=== PATIENT | male | born 2000 | race African-American/Black ===

== ENCOUNTER 2023-01-06 17:27 | Emergency (ER) | payer OTHER ==
[~2023-01-06] VITALS: Ht 190.5 cm; Wt 111.4 kg
[2023-01-06] MEDS ORDERED: dexAMETHasone 20MG/5ML VIAL IV ONE (20:15)
[2023-01-06] MEDS ORDERED: NS 1,000 ML IV ONE (20:15)
[2023-01-06] MEDS ORDERED: AMPICILLIN SOD/SULBACTAM SOD 3 GM in D5W MINI-BAG PLUS 100 ML IV ONE (20:15)
[2023-01-06] MEDS ORDERED: KETOROLAC 30 MG/ML 1ML VIAL IV ONE (20:15)
[2023-01-06 20:41] LABS: BASO % 0.2 % (0.0-1.0); EOS # 0.2 10^3/uL (0.0-0.5); EOS % 1.5 % (0.0-3.0); HEMATOCRIT 44.2 % (42.0-52.0); HEMOGLOBIN 15.4 g/dl (13.5-17.5); LYMPH # 3.6 10^3/uL (1.5-5.0); MEAN CORPUSCULAR HEMOGLOBIN 30.4 pg (27.0-33.0); MEAN CORPUSCULAR HGB CONC 34.8 g/dl (32.0-36.5); MEAN CORPUSCULAR VOLUME 87.4 fl (80.0-96.0); MONO # 1.4 10^3/uL (0.0-0.8); NEUTROPHILS % 62.9 % (36.0-66.0); PLATELET COUNT, AUTOMATED 251 10^3/uL (150-450); RED BLOOD COUNT 5.06 10^6/uL (4.30-6.10); WHITE BLOOD COUNT 14.2 10^3/uL (4.0-10.0)
[2023-01-06] MEDS ORDERED: ISOVUE-370 76% 100ML VIAL As Ordered ONE (20:44)
[2023-01-06] MEDS ORDERED: ONDANSETRON 4MG 2ML VIAL IV ONE (20:45)
[2023-01-06 20:52] LABS: ERYTHROCYTE SEDIMENTATION RATE 15 mm/hr (0-15)
[2023-01-06] MEDS ORDERED: CIPRODEX OTIC SUSP 7.5ML AD STA (21:43)
[2023-01-06] MEDS ORDERED: NORCO 5/325MG TABLET (HOME DOSE PACK) PO ONE (22:25)
[2023-01-06] MEDS ORDERED: AMOX875T2 PO (22:27)
[2023-01-06] MEDS ORDERED: CIPR7.5D5 OTIC (22:27)
[2023-01-06] MEDS ORDERED: MEDR4PAK PO (22:27)
[2023-01-06 22:50] VITALS: BP 132/80; TEMP 98.6; O2SAT 100
== END 2023-01-06 22:46 | disposition home or self-care (01) ==
LOC: M ED 17:27
DX: H60.91 Unspecified otitis externa, right ear (principal); J02.0 Streptococcal pharyngitis; F17.210 Nicotine dependence, cigarettes, uncomplicated
CPT/HCPCS: 70491; 80047; 85025; 85652; 86140; 87880; 96361; 96365; 96375; 99283; J0295; J1100; J1885; J2405; Q9967

== ENCOUNTER 2023-03-09 11:27 | Emergency (ER) | payer OTHER ==
[~2023-03-09] VITALS: Ht 188 cm; Wt 107.5 kg
[~2023-03-09 11:27] MED LIST: AMOX875T2 PO; CIPR7.5D5 OTIC; MEDR4PAK PO
[2023-03-09] MEDS ORDERED: ACET1TAB55 PO (12:00)
[2023-03-09] MEDS ORDERED: ACETAMINOPHEN 325 MG TAB PO ONE (14:45)
[2023-03-09] MEDS ORDERED: NS 1,000 ML IV ONE (16:25)
[2023-03-09] MEDS ORDERED: KETOROLAC 30 MG/ML 1ML VIAL IV ONE (16:25)
[2023-03-09 17:13] LABS: BASO % 0.2 % (0.0-1.0); EOS % 0.1 % (0.0-3.0); HEMATOCRIT 43.4 % (42.0-52.0); HEMOGLOBIN 15.2 g/dl (13.5-17.5); LYMPH # 2.3 10^3/uL (1.5-5.0); LYMPH % 14.8 % (24.0-44.0); MEAN CORPUSCULAR HEMOGLOBIN 30.6 pg (27.0-33.0); MEAN CORPUSCULAR VOLUME 87.5 fl (80.0-96.0); MONO % 15.1 % (2.0-8.0); NEUTROPHILS % 69.3 % (36.0-66.0); PLATELET COUNT, AUTOMATED 222 10^3/uL (150-450); RED BLOOD COUNT 4.96 10^6/uL (4.30-6.10); WHITE BLOOD COUNT 15.8 10^3/uL (4.0-10.0)
[2023-03-09 17:14] LABS: MONO # 2.4 10^3/uL (0.0-0.8)
[2023-03-09] MEDS ORDERED: ISOVUE-370 76% 100ML VIAL As Ordered ONE (17:14)
[2023-03-09] MEDS ORDERED: AMOX500C PO (19:14)
[2023-03-09] MEDS ORDERED: IBUP-1022 PO (19:14)
[2023-03-09] MEDS ORDERED: AMOXICILLIN 500 MG CAP PO ONE (19:15)
[2023-03-09 19:35] VITALS: BP 126/63; TEMP 97.6; O2SAT 99
== END 2023-03-09 19:37 | disposition home or self-care (01) ==
LOC: M ED 11:27
DX: J03.90 Acute tonsillitis, unspecified (principal)
CPT/HCPCS: 70491; 80047; 83605; 85025; 87040; 87486; 87581; 87633; 87798; 87880; 96374; 99284; J1885; Q9967

== ENCOUNTER 2023-03-12 10:42 | Emergency (ER) | payer OTHER ==
[~2023-03-12] VITALS: Ht 190.5 cm; Wt 106.3 kg
[~2023-03-12 10:42] MED LIST changes: +ACET1TAB55 PO; +AMOX500C PO; +IBUP-1022 PO
[2023-03-12] MEDS ORDERED: IBUPROFEN 600MG TAB PO ONE (13:50)
[2023-03-12] MEDS ORDERED: KETOROLAC 30 MG/ML 1ML VIAL IM ONE (14:25)
[2023-03-12] MEDS ORDERED: ACETAMINOPHEN 500 MG TAB PO ONE (14:25)
[2023-03-12] MEDS ORDERED: dexAMETHasone 20MG/5ML VIAL IM ONE (14:25)
[2023-03-12] MEDS ORDERED: KETOROLAC 30 MG/ML 1ML VIAL IV ONE (14:25)
[2023-03-12] MEDS ORDERED: dexAMETHasone 20MG/5ML VIAL IV ONE (14:25)
[2023-03-12] MEDS ORDERED: ISOVUE-370 76% 100ML VIAL As Ordered ONE (14:38)
[2023-03-12 15:29] VITALS: BP 128/74; TEMP 99.7; O2SAT 97
== END 2023-03-12 15:31 | disposition home or self-care (01) ==
LOC: M ED 10:42
DX: J02.0 Streptococcal pharyngitis (principal)
CPT/HCPCS: 70491; 96374; 96375; 99284; J1100; J1885; Q9967

== ENCOUNTER 2023-05-18 11:11 | Day surgery (SDC) | payer OTHER ==
[~2023-05-18] VITALS: Ht 190.5 cm; Wt 108.4 kg
[2023-05-18] MEDS ORDERED: SUGAMMADEX SODIUM 500 MG/5 ML VIAL (BRIDION) As Ordered ONE (12:54)
[2023-05-18] MEDS ORDERED: LIDOCAINE 2% 100MG/5ML SDV (FOR ANES.) As Ordered ONE (12:54)
[2023-05-18] MEDS ORDERED: MIDAZOLAM INJ 2MG/2ML VIAL As Ordered ONE (12:54)
[2023-05-18] MEDS ORDERED: ROCURONIUM BROMIDE 50MG/5ML VIAL As Ordered ONE (12:54)
[2023-05-18] MEDS ORDERED: fentaNYL 100 MCG/2 ML INJECTION As Ordered ONE ×2 (12:54→13:23)
[2023-05-18] MEDS ORDERED: propofoL 200 MG/20 ML VIAL As Ordered ONE (12:54)
[2023-05-18] MEDS ORDERED: ONDANSETRON 4MG 2ML VIAL As Ordered ONE (12:54)
[2023-05-18] MEDS ORDERED: ESMOLOL INJ 100MG/10ML VIAL As Ordered ONE (13:27)
[2023-05-18] MEDS ORDERED: LR 1,000 ML IV SCH (14:15)
[2023-05-18] MEDS ORDERED: fentaNYL 100 MCG/2 ML INJECTION IV PRN (14:15)
[2023-05-18] MEDS ORDERED: ONDANSETRON 4MG 2ML VIAL IV PRN (14:15)
[2023-05-18] MEDS ORDERED: HYDROMORPHONE HCL 0.5 MG/ 0.5 ML SYRINGE IV PRN (14:15)
[2023-05-18] MEDS: oxyCODONE 5MG TAB PO PRN ×2 (15:13→15:46)
[2023-05-18 16:12] VITALS: BP 131/80; TEMP 97; O2SAT 99
== END 2023-05-18 16:35 | disposition home or self-care (01) ==
LOC: M SDC 11:11
PROVIDERS: ATTEND Otolaryngology
DX: J35.03 Chronic tonsillitis and adenoiditis (principal); M25.569 Pain in unspecified knee
CPT/HCPCS: 42821; 88302; J0665; J1100; J1805; J2250; J2405; J3010

== ENCOUNTER 2023-05-27 18:44 | Emergency (ER) | payer OTHER ==
[~2023-05-27] VITALS: Ht 190.5 cm; Wt 104.5 kg
[2023-05-27 18:44] VITALS: TEMP 97.9
[2023-05-27] MEDS ORDERED: HYDR-3713 PO (18:57)
[2023-05-27 19:30] VITALS: BP 122/73; O2SAT 100
== END 2023-05-27 21:15 | disposition home or self-care (01) ==
LOC: M ED 18:44
DX: K91.841 Postprocedural hemorrhage of a digestive system organ or structure following other procedure (principal)